=== PATIENT | male | born 1935 | race Caucasian/White ===

== ENCOUNTER 2023-05-14 12:02 | Observation (INO) | payer MEDICARE, OTHER ==
[2023-05-14] MEDS ORDERED: Dexamethasone 10 MG/ML VIAL ONE ×2 (12:37→12:49)
[2023-05-14] MEDS ORDERED: Ipratropium/Albuterol 3 ML NEB ONE (12:38)
[2023-05-14] MEDS ORDERED: Glucagon 1 MG/ML KIT ONE (12:38)
[2023-05-14 12:47] LABS: #Basophils 0.1 10x3/uL (0.0-0.2); #Eosinphils 0.5 10x3/uL (0.0-0.5); #Monocytes 1.1 10x3/uL (0.0-1.1); #Neutrophils 5.2 10x3/uL (1.5-8.4); %Basophils 0.6 % (0.0-2.0); %Eosinophils 5.8 % (0.0-6.0); %Lymphocytes 20.1 % (18.0-47.0); %Monocytes 12.8 % (0.0-10.0); %Neutrophils 60.4 % (40.0-75.0); Hematocrit 41.5 % (38.8-50.0); Hemoglobin 14.1 g/dL (13.5-17.5); Mean Corpuscular Hemoglobin 31.5 pg (27.0-33.0); Mean Corpuscular Volume 92.8 fl (81.2-95.1); Platelet Count 214 10x3/uL (150-450); RBC Distribution Width 12.9 % (11.5-14.5); Red Blood Cell (RBC) Count 4.47 10x6/uL (4.32-5.72); White Blood Cell (WBC) Count 8.7 10x3/uL (3.5-10.5)
[2023-05-14 13:02] LABS: ALT (SGPT) 21 U/L (8-55); AST (SGOT) 17 U/L (5-34); Albumin 3.9 g/dL (3.4-4.8); Alkaline Phosphatase 78 U/L (40-110); Anion Gap 14 mmol/L (10-20); BUN (Urea Nitrogen) 24 mg/dL (8.4-25.7); Bilirubin, Total 0.6 mg/dL (0.2-1.2); Calc. Creatinine Clearance 0 mL/min (70-130); Calcium 9.1 mg/dL (7.8-10.44); Carbon Dioxide 26 mmol/L (23-31); Chloride 101 mmol/L (98-107); Estimated GFR 56; Globulin 2.7 g/dL (2.4-3.5); Glucose 111 mg/dL (83-110); Lipase 16 U/L (8-78); Protein, Total 6.6 g/dL (5.8-8.1); Sodium 137 mmol/L (136-145)
[2023-05-14 13:05] LABS: Troponin I 0.026 ng/mL (< 0.028)
[2023-05-14] MEDS ORDERED: Ondansetron PF 4 MG/2 ML Vial IVP PRN (14:37)
[2023-05-14] MEDS ORDERED: Ondansetron ODT 4 MG TAB PO PRN (14:37)
[2023-05-14] MEDS ORDERED: Acetaminophen 325 MG TAB PO PRN (14:37)
[2023-05-14] MEDS ORDERED: Ipratropium/Albuterol 3 ML NEB NEB PRN (14:39)
[2023-05-14 17:25] VITALS: BMI 35.9
[2023-05-15 06:08] LABS: Hemoglobin 12.4 g/dL (13.5-17.5); Mean Corpuscular HGB CONC 34.4 g/dL (32.0-36.0); Mean Corpuscular Hemoglobin 31.3 pg (27.0-33.0); Mean Corpuscular Volume 90.9 fl (81.2-95.1); Mean Platelet Volume 13.3 fl (7.4-10.4); Platelet Count 190 10x3/uL (150-450); RBC Distribution Width 12.9 % (11.5-14.5); Red Blood Cell (RBC) Count 3.96 10x6/uL (4.32-5.72); White Blood Cell (WBC) Count 11.5 10x3/uL (3.5-10.5)
[2023-05-15 06:09] LABS: Anion Gap 13 mmol/L (10-20); BUN (Urea Nitrogen) 36 mg/dL (8.4-25.7); Calc. Creatinine Clearance 51 mL/min (70-130); Calcium 8.9 mg/dL (7.8-10.44); Carbon Dioxide 23 mmol/L (23-31); Chloride 102 mmol/L (98-107); Estimated GFR 39; Glucose 171 mg/dL (83-110); Potassium 3.8 mmol/L (3.5-5.1); Sodium 134 mmol/L (136-145)
[2023-05-15 06:45] LABS: #Monocytes 0.5 10x3/uL (0.0-1.1); %Basophils 0.1 % (0.0-2.0); %Lymphocytes 10.3 % (18.0-47.0); %Monocytes 4.1 % (0.0-10.0); %Neutrophils 84.8 % (40.0-75.0)
[2023-05-15] MEDS ORDERED: hydrALAZINE 25 MG TAB PO SCH (08:00)
[2023-05-15] MEDS ORDERED: Amlodipine 10 MG TAB PO SCH (09:00)
[2023-05-15] MEDS ORDERED: EPA PO SCH (09:00)
[2023-05-15] MEDS ORDERED: CO Q-10 CAPSULE 50 MG PO SCH (09:00)
[2023-05-15] MEDS ORDERED: KRILL OIL PO SCH (09:00)
[2023-05-15] MEDS ORDERED: Indapamide 1.25 MG TAB PO SCH (09:00)
[2023-05-15] MEDS ORDERED: Ascorbic Acid 500 mg Chewable Tablet PO SCH (09:00)
[2023-05-15] MEDS ORDERED: DHA PO SCH (09:00)
[2023-05-15] MEDS ORDERED: Cyanocobalamin (Vitamin B-12) 1,000 MCG TAB PO SCH (09:00)
[2023-05-15] MEDS ORDERED: Losartan Potassium 50 MG TAB PO SCH (09:00)
[2023-05-15] MEDS ORDERED: Finasteride 5 MG TAB PO SCH (09:00)
[2023-05-15] MEDS ORDERED: OMEGA PO SCH (09:00)
[2023-05-15 09:20] VITALS: TEMP 97.6
[2023-05-15 11:11] VITALS: BP 124/58
[2023-05-15] MEDS ORDERED: Pioglitazone HCl 15 MG TAB PO SCH (21:00)
[2023-05-15] MEDS ORDERED: Atorvastatin Calcium 20 MG TAB PO SCH (21:00)
[2023-05-15] MEDS ORDERED: Cholecalciferol 1,000 UNITS (25 MCG) TAB PO SCH (21:00)
[2023-05-15] MEDS ORDERED: Apixaban 5 MG TAB PO SCH (21:00)
[2023-05-15] MEDS ORDERED: Aspirin 81 mg Enteric Coated Tablet PO SCH (21:00)
== END 2023-05-15 11:00 | disposition home or self-care (01) ==
LOC: CSHERS 12:02 → CSHTELE 15:11
PROVIDERS: ADMIT Internal Medicine; ATTEND Nurse Practitioner Family
DX: R00.1 Bradycardia, unspecified (principal); J45.901 Unspecified asthma with (acute) exacerbation; G47.33 Obstructive sleep apnea (adult) (pediatric); I48.91 Unspecified atrial fibrillation; I48.0 Paroxysmal atrial fibrillation; I10 Essential (primary) hypertension; E11.9 Type 2 diabetes mellitus without complications; N40.0 Benign prostatic hyperplasia without lower urinary tract symptoms; Z79.82 Long term (current) use of aspirin; Z79.899 Other long term (current) drug therapy; Z90.49 Acquired absence of other specified parts of digestive tract
CPT/HCPCS: 71045; 71275; 80048; 80053; 82962 ×2; 83690; 83880; 84484; 85025 ×2; 85379; 93005; 94660; 94760; G0378 ×3; J1611; 36415; 36416; 96374; 96375; J1100; J7611; J7620

== ENCOUNTER 2024-09-25 10:51 | Day surgery (SDC) | payer MEDICARE, OTHER ==
[2024-09-25 11:49] VITALS: BP 133/80; TEMP 97.6
[2024-09-25] MEDS ORDERED: PROPOFOL 20 ML ONE (11:52)
== END 2024-09-25 13:58 | disposition home or self-care (01) ==
LOC: CSHSDC 10:51
PROVIDERS: ATTEND Internal Medicine Cardiovascular Disease
DX: I48.0 Paroxysmal atrial fibrillation (principal); E78.5 Hyperlipidemia, unspecified; I10 Essential (primary) hypertension; G47.33 Obstructive sleep apnea (adult) (pediatric); N40.0 Benign prostatic hyperplasia without lower urinary tract symptoms; M10.9 Gout, unspecified; E11.9 Type 2 diabetes mellitus without complications; R94.31 Abnormal electrocardiogram [ECG] [EKG]; Z79.01 Long term (current) use of anticoagulants; Z90.49 Acquired absence of other specified parts of digestive tract; Z98.890 Other specified postprocedural states; Z79.899 Other long term (current) drug therapy
CPT/HCPCS: 93005; J2704